=== PATIENT | female | born 1985 | race Caucasian/White ===

== ENCOUNTER 2019-10-26 11:31 | Outpatient (REF) | payer OTHER, SELFPAY ==
[2019-10-26 12:05] LABS: Chol HDL Ratio 3.15 mg/dL (0.0-4.40); Cholesterol 167 mg/dL (0-200); Glucose 97 mg/dL (65-115); HDL Cholesterol 53 mg/dL (60-100); LDL Cholesterol Calculated 99 mg/dL (50-129); LDL HDL Ratio 1.87 RATIO (0.00-3.22); Triglycerides 76 mg/dL (0-150)
[2019-10-26 12:40] LABS: Estmated Average Glucose 117; Hemoglobin A1C 5.7 % (4.0-6.0)
== END 2019-10-26 11:32 | disposition home or self-care (01) ==
LOC: LAB 11:31
PROVIDERS: Family Provider Family Medicine; Visit Provider Family Medicine
DX: Z01.89 Encounter for other specified special examinations (principal)
CPT/HCPCS: 80061; 82947; 83036

== ENCOUNTER 2022-01-28 09:50 | Outpatient (CLI) | payer OTHER, MEDICAID, SELFPAY ==
[2022-01-28 10:11] LABS: Basophils # 0.1 10^3/uL (0.0-0.1); Basophils % 0.5 %; Eosinophils # 0.1 10^3/uL (0.0-0.8); Eosinophils % 0.5 %; Hematocrit 41.7 % (37.0-47.0); Hemoglobin 13.7 g/dL (11.5-15.3); Lymphocytes # 2.7 10^3/uL (0.8-4.8); Mean Corpuscular HGB Conc 32.9 g/dL (30.0-36.0); Mean Corpuscular Hemoglobin 30.1 pg (28.0-34.0); Mean Corpuscular Volume 91.6 fl (81-99); Mean Platelet Volume 8.7 fL (7.4-10.4); Monocytes # 0.6 10^3/uL (0.2-0.9); Monocytes % 6.2 %; Neutrophils # 6.42 10^3/uL (1.8-7.7); Neutrophils % 65.4 %; Nucleated Red Blood Cells % 0 %; Platelet Count 274 10^3/cmm (130-400); Red Blood Count 4.55 10^6/uL (4.1-5.3); Red Cell Distribution Width 12.1 % (12.1-15.1); White Blood Count 9.8 10^3/uL (4.0-10.0)
== END 2022-01-28 09:51 | disposition home or self-care (01) ==
PROVIDERS: PCP Family Medicine; Visit Provider Nurse Practitioner Women's Health
DX: O20.9 Hemorrhage in early pregnancy, unspecified (principal)
CPT/HCPCS: 36415; 76817; 84702; 85025; 86850; 86900

== ENCOUNTER → 2022-02-27 10:06 | Outpatient (BNVA) | payer OTHER, BC, MEDICAID, SELFPAY | PROVIDERS: PCP Family Medicine; Visit Provider Obstetrics & Gynecology | DX: Z34.90 Encounter for supervision of normal pregnancy, unspecified, unspecified trimester (principal) | CPT/HCPCS: 80307; 84315; 84443; 85025; 86592; 86762; 86803; 86850; 86900; 87086; 87340; 87806 ==

== ENCOUNTER → 2022-03-16 13:56 | Outpatient (BNVA) | payer OTHER, BC, MEDICAID, SELFPAY | PROVIDERS: PCP Family Medicine; Visit Provider Obstetrics & Gynecology | DX: Z34.90 Encounter for supervision of normal pregnancy, unspecified, unspecified trimester (principal) | CPT/HCPCS: 84315; 87491; 87591; 87661 ==

== ENCOUNTER → 2022-05-11 10:00 | Outpatient (BNVA) | payer OTHER, BC, MEDICAID, SELFPAY | PROVIDERS: PCP Family Medicine; Visit Provider Obstetrics & Gynecology | DX: Z34.90 Encounter for supervision of normal pregnancy, unspecified, unspecified trimester (principal) | CPT/HCPCS: 81000 ==

== ENCOUNTER → 2022-05-27 11:15 | Outpatient (BNVA) | payer OTHER, BC, MEDICAID, SELFPAY | PROVIDERS: PCP Family Medicine; Visit Provider Obstetrics & Gynecology | DX: N89.8 Other specified noninflammatory disorders of vagina (principal) | CPT/HCPCS: 87255; 87529 ==

== ENCOUNTER → 2022-07-02 10:30 | Outpatient (BNVA) | payer OTHER, BC, MEDICAID, SELFPAY | PROVIDERS: PCP Family Medicine; Visit Provider Obstetrics & Gynecology | DX: Z34.90 Encounter for supervision of normal pregnancy, unspecified, unspecified trimester (principal) | CPT/HCPCS: 82950; 84315; 85025; 87086 ==

== ENCOUNTER → 2022-07-17 07:40 | Outpatient (BNVA) | payer OTHER, BC, MEDICAID, SELFPAY | PROVIDERS: PCP Family Medicine; Visit Provider Obstetrics & Gynecology | DX: Z34.90 Encounter for supervision of normal pregnancy, unspecified, unspecified trimester (principal) | CPT/HCPCS: 82607; 82728; 82746; 82951; 82952; 83550; 84315; 85025; 87086 ==

== ENCOUNTER → 2022-07-24 13:44 | Outpatient (BNVA) | payer OTHER, BC, MEDICAID, SELFPAY | PROVIDERS: PCP Family Medicine; Visit Provider Obstetrics & Gynecology | DX: Z34.90 Encounter for supervision of normal pregnancy, unspecified, unspecified trimester (principal) | CPT/HCPCS: 84315; 87086 ==

== ENCOUNTER 2022-07-30 10:38 | Outpatient (CLI) | payer OTHER, BC, MEDICAID, SELFPAY ==
[2022-07-30 10:53] VITALS: BP 128/69; PULSE 129
[2022-07-30 11:14] VITALS: BP 123/74; PULSE 120
[2022-07-30 11:24] VITALS: BP 123/74; PULSE 120; RESP 18
== END 2022-07-30 11:20 | disposition home or self-care (01) ==
LOC: OPOB 10:42 → OBGYN 10:43
PROVIDERS: PCP Family Medicine; Visit Provider Obstetrics & Gynecology
DX: O30.099 Twin pregnancy, unable to determine number of placenta and number of amniotic sacs, unspecified trimester (principal); Z3A.00 Weeks of gestation of pregnancy not specified
CPT/HCPCS: 59025; 99211

== ENCOUNTER 2022-07-31 10:10 | Outpatient (CLI) | payer OTHER, BC, MEDICAID, SELFPAY ==
[2022-07-31 10:10] VITALS: BMI 34.4
[2022-07-31] MEDS: betamethasone susp 6 mg/mL 5 mL 12 MG IM (10:29)
== END 2022-07-31 10:30 | disposition home or self-care (01) ==
LOC: OPOB 10:13
PROVIDERS: PCP Family Medicine; Visit Provider Obstetrics & Gynecology
DX: O30.099 Twin pregnancy, unable to determine number of placenta and number of amniotic sacs, unspecified trimester (principal); Z3A.00 Weeks of gestation of pregnancy not specified
CPT/HCPCS: 84315; 96372; 99211; J0702

== ENCOUNTER 2022-08-01 11:13 | Outpatient (CLI) | payer OTHER, BC, MEDICAID, SELFPAY ==
[2022-08-01 11:27] VITALS: BMI 34.4
[2022-08-01 11:38] VITALS: BP 122/74; PULSE 120; TEMP 35.9
[2022-08-01] MEDS: betamethasone susp 6 mg/mL 5 mL 12 MG IM (11:39)
== END 2022-08-01 11:59 | disposition home or self-care (01) ==
LOC: OPOB 11:22 → OBGYN 11:26
PROVIDERS: PCP Family Medicine; Visit Provider Obstetrics & Gynecology
DX: O26.899 Other specified pregnancy related conditions, unspecified trimester (principal); Z3A.00 Weeks of gestation of pregnancy not specified
CPT/HCPCS: 96372; J0702

== ENCOUNTER 2022-08-03 08:53 | Outpatient (CLI) | payer OTHER, BC, MEDICAID, SELFPAY ==
[2022-08-03] VITALS (10 sets, daily range): BP systolic 115–130; BP diastolic 58–68; PULSE 71–80; RESP 17; TEMP 36.1; BMI 35.9
--- NOTE | 2022-08-03 | US_ITS ---
WS: [id number] BIOPHYSICAL PROFILE, twin gestation. AMNIOTIC FLUID HISTORY: decreased movement COMPARISON: 07/30/2022 Very limited evaluation of the twin gestation. Targeted evaluation to the biophysical profile only. Twin A: position: Vertex., Maternal RIGHT Cardiac activity: 144 bpm. Placenta: Posterior, no previa or abruption. Placenta grade: 2 Parameters are as follows: Breathin Movement: 2 Tone: 2 Fluid volume: 2 Amniotic fluid, single vertical pocket 2.7 cm. Twin B: position: Vertex. Maternal LEFT. Cardiac activity: 124 bpm Parameters are as follows: Breathin Movement: 2 Tone: 2 Fluid volume: 2 Amniotic fluid: Single vertical pocket 2.4 cm. US/US OB BPP wo NST twins IMPRESSION: 1. Twin A; Biophysical profile score: 8/8. 2. Twin B; Biophysical profile score: 6/8.
--- NOTE | 2022-08-03 10:09 | US_ITS ---
WS: [id number] BIOPHYSICAL PROFILE, twin gestation. AMNIOTIC FLUID HISTORY: decreased movement COMPARISON: 07/30/2022 Very limited evaluation of the twin gestation. Targeted evaluation to the biophysical profile only. Twin A: position: Vertex., Maternal RIGHT Cardiac activity: 144 bpm. Placenta: Posterior, no previa or abruption. Placenta grade: 2 Parameters are as follows: Breathin Movement: 2 Tone: 2 Fluid volume: 2 Amniotic fluid, single vertical pocket 2.7 cm. Twin B: position: Vertex. Maternal LEFT. Cardiac activity: 124 bpm Parameters are as follows: Breathin Movement: 2 Tone: 2 Fluid volume: 2 Amniotic fluid: Single vertical pocket 2.4 cm.
== END 2022-08-03 11:25 | disposition home or self-care (01) ==
LOC: OPOB 08:59 → OBGYN 09:00
PROVIDERS: PCP Family Medicine; Visit Provider Obstetrics & Gynecology
DX: O36.8190 Decreased fetal movements, unspecified trimester, not applicable or unspecified (principal); Z3A.00 Weeks of gestation of pregnancy not specified
CPT/HCPCS: 59025; 76819; 99211

== ENCOUNTER → 2022-08-05 10:19 | Outpatient (BNVA) | payer OTHER, BC, MEDICAID, SELFPAY | PROVIDERS: PCP Family Medicine; Visit Provider Family Medicine | DX: O99.019 Anemia complicating pregnancy, unspecified trimester (principal) | CPT/HCPCS: 82728; 83540; 85025 ==

== ENCOUNTER 2022-08-07 12:27 | Outpatient (CLI) | payer OTHER, BC, MEDICAID, SELFPAY ==
[2022-08-07 12:25] VITALS: BMI 35.5
[2022-08-07 12:33] VITALS: BP 123/67; PULSE 89
[2022-08-07 12:53] VITALS: BP 120/71; PULSE 106
[2022-08-07 13:16] VITALS: BP 120/71; PULSE 106
== END 2022-08-07 13:10 | disposition home or self-care (01) ==
LOC: OPOB 12:27 → OBGYN 12:30
PROVIDERS: Absent Provider Obstetrics & Gynecology; PCP Family Medicine; Visit Provider Obstetrics & Gynecology
DX: O30.099 Twin pregnancy, unable to determine number of placenta and number of amniotic sacs, unspecified trimester (principal); Z3A.00 Weeks of gestation of pregnancy not specified
CPT/HCPCS: 59025; 99211

== ENCOUNTER 2022-08-10 11:17 | Outpatient (CLI) | payer OTHER, BC, MEDICAID, SELFPAY ==
[2022-08-10 11:34] VITALS: BP 122/90; PULSE 100
[2022-08-10 11:37] VITALS: RESP 16
[2022-08-10 11:48] VITALS: BP 117/59; PULSE 102
[2022-08-10 11:52] LABS: Actim Prom Negative
== END 2022-08-10 12:02 | disposition home or self-care (01) ==
LOC: OPOB 11:23 → OBGYN 11:24
PROVIDERS: PCP Family Medicine; Visit Provider Obstetrics & Gynecology
DX: O26.899 Other specified pregnancy related conditions, unspecified trimester (principal); Z3A.00 Weeks of gestation of pregnancy not specified
CPT/HCPCS: 59025; 84112; 84315; 87086; 99211

== ENCOUNTER 2022-08-24 11:07 | Outpatient (CLI) | payer OTHER, BC, MEDICAID, SELFPAY ==
[2022-08-24 11:10] VITALS: BMI 35.1
[2022-08-24 11:26] VITALS: BP 120/73; PULSE 100
[2022-08-24 11:34] VITALS: RESP 18; TEMP 36.3
[2022-08-24 11:46] VITALS: BP 125/76; PULSE 87
[2022-08-24 12:07] VITALS: BP 129/75; PULSE 82
[2022-08-24 12:25] VITALS: BP 129/75; PULSE 82
== END 2022-08-24 12:27 | disposition home or self-care (01) ==
LOC: OPOB 11:17 → OBGYN 11:19
PROVIDERS: PCP Family Medicine; Visit Provider Obstetrics & Gynecology
DX: O30.099 Twin pregnancy, unable to determine number of placenta and number of amniotic sacs, unspecified trimester (principal); Z3A.00 Weeks of gestation of pregnancy not specified
CPT/HCPCS: 59025; 84315; 87086; 99211

== ENCOUNTER 2022-08-25 12:42 | Oncology outpatient (recurring) (ONCR) | payer OTHER, BC, MEDICAID, SELFPAY ==
[2022-08-18 14:45] VITALS: BP 136/84; PULSE 80; RESP 16; TEMP 36.9; O2SAT 97
[2022-08-25 13:39] VITALS: BP 129/82; PULSE 92; RESP 16; TEMP 36.2; O2SAT 99
[2022-08-25] MEDS: sodium chloride 0.9% 250 ML 75 ML IV (13:56)
[2022-08-25] MEDS: ferric carboxy (IVPB) 750 MG in sodium chloride 0.9% (100 ml) 100 ML 345 MG IV (13:56)
== END 2022-09-04 23:59 | disposition home or self-care (01) ==
LOC: ONCMED 12:43
PROVIDERS: PCP Family Medicine; Visit Provider Family Medicine
DX: O99.013 Anemia complicating pregnancy, third trimester (principal); D50.9 Iron deficiency anemia, unspecified; Z79.899 Other long term (current) drug therapy; Z78.9 Other specified health status
CPT/HCPCS: 96365; J1439; J7050

== ENCOUNTER 2022-08-28 03:44 | Inpatient (IN) | payer OTHER, BC, MEDICAID, SELFPAY ==
[2022-08-28] VITALS (69 sets, daily range): BP systolic 84–135; BP diastolic 45–79; PULSE 75–127; RESP 15–18; TEMP 35.8–36.6; O2SAT 96–97
--- NOTE | 2022-08-28 02:27 | USR_ITS ---
PROCEDURE INFORMATION: Exam: US , Limited Exam date and time: 08/28/2022 3:07 AM Age: 37 years old Clinical indication: Lmp or gestational age (in weeks): Premature rupture of membranes; Antepartum complications; ; Additional info: Presentation; Cervical length; [place] LABS AND CLINICAL REPORTS: Last menstrual period start date: 12/16/2021 Gestational age (Established): 36 w 3 d Estimated due date (Established): 09/22/2022 TECHNIQUE: Imaging protocol: Real-time ultrasound of the maternal uterus with image documentation. Exam focused on the clinical indication. COMPARISON: US OB BPP wo NST CC 08/24/2022 8:50 AM FINDINGS: Multifetal identity: Fetus 1 - A. Fetus 2 - B Gestation: Intrauterine gestation. The amniotic and chorionic membranes are not clearly delineated on the images. heart rate: Fetus 1 - 144 bpm. Fetus 2 - 150 bpm presentation: Fetus 1 - Cephalic. Fetus 2 - Cephalic Placenta: Fetus 1 - Anterior grade 3 placenta without previa. Fetus 2 - Anterior grade 3 placenta without previa. Amniotic fluid index: Fetus 1 - ROME is 12.3 cm. Fetus 2 - ROME is 12.5 cm. MATERNAL: Cervix: Cervical length measures 5 cm. US/US OB limited twins [id number] IMPRESSION: Limited twin ultrasound, as noted above.
[2022-08-28] MEDS: NIFEdipine 10 mg Capsule 30 MG PO (02:44)
[2022-08-28] MEDS: betamethasone susp 6 mg/mL 5 mL 12 MG IM (02:44)
[2022-08-28 02:46] LABS: Nitrazine Paper, PH Positive
[2022-08-28] MEDS: dextrose 5%-lactated ringers 1,000 ML 125 ML IV (04:02)
[2022-08-28] MEDS: ondansetron 2 mg/ML SDV 2 mL 4 MG IVP ×2 (04:02→09:53)
[2022-08-28] MEDS: oxytocin 30 UNIT/500 ML BAG IV (04:06)
[2022-08-28 04:29] LABS: Basophils % 0.3 %; Eosinophils # 0.1 10^3/uL (0.0-0.8); Hematocrit 37.8 % (37.0-47.0); Hemoglobin 11.6 g/dL (11.5-15.3); Lymphocytes # 3.4 10^3/uL (0.8-4.8); Lymphocytes % 33.5 %; Mean Corpuscular HGB Conc 30.7 g/dL (30.0-36.0); Mean Corpuscular Hemoglobin 25.8 pg (28.0-34.0); Mean Corpuscular Volume 84.2 fl (81-99); Mean Platelet Volume 9.9 fL (7.4-10.4); Monocytes # 0.9 10^3/uL (0.2-0.9); Monocytes % 8.6 %; Neutrophils # 5.59 10^3/uL (1.8-7.7); Nucleated Red Blood Cells % 0.3 %; Platelet Count 379 10^3/cmm (130-400); Red Blood Count 4.49 10^6/uL (4.1-5.3); Red Cell Distribution Width 19.8 % (12.1-15.1)
[2022-08-28] MEDS: lactated ringers 1,000 ML 999 ML IV (07:31)
--- NOTE | 2022-08-28 08:51 | ANES.PREANE2 ---
Pre-Anesthetic Assessment Height/Weight: Height 1.55 m Weight 85.275 kg Temp Pulse Resp BP Pulse Ox O2 Del Method 96.4 F L 117 H 18 105/59 96 08/28/22 01:56 08/28/22 08:50 08/28/22 03:26 08/28/22 08:50 08/28/22 08:33 08/28/22 05:16 Epidural Familial anesthetic complications: None Was Beta Trae taken within 24 hours: N/A Was Clonidine taken within 24 hours: N/A Social No alcohol and No tobacco Exam alert, oriented x 3, clear to auscultation bilaterally and regular rate & rhythm Airway Mallampati: Class I Dentition: full CV/HEM Anemia Anesthetic Plan ASA status: 2 Anesthesia: Regional (specify below) Risk of > 500 ml blood loss (7ml/kg in children): Yes, adequate IV access and fluids planned Other Pertinent Information Twins Medications/Allergies Home Medications Medication Instructions Recorded Confirmed Last Taken Type valacyclovir 1 gram tablet 1,000 mg PO DAILY #30 tabs 06/05/22 08/28/22 08/27/22 Rx ondansetron HCl 4 mg tablet See Rx Instructions .Route 07/06/22 08/28/22 08/26/22 Rx .COMPLEX #30 tabs ferrous sulfate 325 mg (65 mg 325 mg PO DAILY 07/24/22 08/28/22 08/26/22 History iron) tablet prenat.vits,silvia,dyq-psxp-lifru 1 tab PO DAILY 07/24/22 08/28/22 08/27/22 History Allergies Allergy/AdvReac Type Severity Reaction Status Date / Time No Known Allergies Allergy Verified 08/28/22 03:09 Current Medications Generic Name Dose Route Start Last Admin Trade Name Freq PRN Reason Stop Dose Admin Betamethasone Acet/Betameth SodPhos 12 mg 08/28/22 02:30 08/28/22 02:44 Betamethasone Susp 6 Mg/Ml 5 Ml IM 08/29/22 02:31 12 mg Q24H BASIL Administration Dextrose/Lactated Ringer's 1,000 mls @ 125 mls/hr 08/28/22 03:30 08/28/22 04:02 Dextrose 5%-Lactated Ringers IV 125 mls/hr .Q8H BASIL Administration Lactated Ringer's 1,000 mls @ 999 mls/hr 08/28/22 03:25 08/28/22 07:31 Lactated Ringers IV 999 mls/hr .Q1H1M PRN Administration Per L&D Rescitation Protocol Oxytocin 30 unit in 500 mls @ 1 mls/hr 08/28/22 03:30 08/28/22 08:10 Pitocin IV 12 milliunit/min .Q24H BASIL 12 mls/hr Titration Protocol 1 MILLIUNIT/MIN Ropivacaine 200 mg in 100 mls @ 13 mls/hr 08/28/22 07:45 08/28/22 08:42 Naropin Premix EPIDURAL 13 mls/hr .Q7H42M BASIL Administration Nifedipine 30 mg 08/28/22 02:45 08/28/22 02:44 Nifedipine 10 Mg Capsule PO 30 mg ONCE BASIL Administration Ondansetron HCl 4 mg 08/28/22 03:25 08/28/22 04:02 Ondansetron 2 Mg/Ml Sdv 2 Ml IVP 4 mg Q4H PRN Administration NAUSEA AND VOMITING PFSH Anesthesia Medical History No pertinent past medical history No hx: heart, lung, kidney, liver, thyroid, bleeding or clotting disorders. PCP: Dr. Reynolds Surgical History History of bilateral breast reduction surgery (~2015) Family History Grandfather CAD (coronary artery disease) Diabetes Paternal Hypertension Paternal Stroke Paternal Cancer Lung and maybe esophageal cancer Grandmother CAD (coronary artery disease) Diabetes Paternal Hypertension Paternal Cancer Paternal--- Breast cancer-- dx'd later age Father Hyperlipidemia Hypertension Denies family history of Colon cancer Ovarian cancer Uterine cancer Thyroid disease Female Reproductive History : 3 Data Anesthesia 08/28/22 03:50 Short CBC 08/28/22 Range/Units 03:50 WBC 10.0 (4.0-10.0) 10^3/uL Hgb 11.6 (11.5-15.3) g/dL Hct 37.8 (37.0-47.0) % MCV 84.2 (81-99) fl Plt Count 379 (130-400) 10^3/cmm Neut % (Auto) 56.0 % Neut # (Auto) 5.59 (1.8-7.7) 10^3/uL Cardiac Studies: No Data to Display
--- NOTE | 2022-08-28 08:52 | ANES.PROC ---
Anesthesia Procedures Procedure/Date: 08/28/22 Epidural: Time Out Performed: Yes Consents Signed: Procedure Consent Consent: requested by attending/covering physician, from patient, risks and benefits reviewed and patient agrees to proceed Lumbar Level: L3-L4 Epidural position: sitting Epidural procedure: sterile prep of area, 1% lidocaine to numb the area, 18 g needle, negative for paresthesia passed, neg for paresthesia, test dose given, 1.5% xylocaine 1:200k epi (5 cc), 0.2% Ropivacaine bolus ml (5 ), placed PCEA, no systemic response, sterile dressing applied, L.U.D. no apparent complications and 0.2% Ropiavacaine @ mls/hr (13) Additional Comments: RUPA at 5 cm, threaded to 11 cm excess bleeding from puncture site
[2022-08-28] MEDS: alum-mag-hydroxide-sime 30 mL UDC PO ×2 (09:09→15:17)
--- NOTE | 2022-08-28 14:45 | P.PCNOB_ITS ---
Delivery Note: Date of delivery: August 28, 2022 Pre-delivery diagnoses: Twin the diamniotic and dichorionic vertex, vertex Post-delivery diagnoses: Same as above Procedure: A spontaneous vaginal delivery of twin Delivering Physician: Iván Winston MD Estimated blood loss (mL): 500 Pre-Delivery Course: Ms. Freed is a 37 year old established patient with LMP of 12/17/2021, YUDELKA 09/22/2021 based on 6 week ultrasound, placing her at 36-2/7 weeks today with twin dichorionic diamniotic. Came to labor and delivery with premature rupture of membranes. Delivery: The patient was noted to be complete and pushing, she was taken to the OR for double set up and she was placed in the dorsal lithotomy position, prepped and draped in the usual sterile fashion for a vaginal delivery. Pt. Noted to have epidural anesthesia. At 1354 the patient delivered baby A viable at 36 weeks male weighing 2620 g with scores of 8 and 8 at one and five minutes, respectively. The vertex was delivered spontaneously over intact perineum. The patient was asked to push and the head delivered spontaneously in the MANUEL position, over an intact perineum. A nuchal cord was checked and 1 noted, and relieved around head as necessary. The anterior shoulder delivered easily and the posterior shoulder followed. The remainder of the was easily delivered and the oropharynx and nasopharynx was bulb suctioned. The was noted to have spontaneous cry and spontaneous movement of all four extremities. The cord was clamped x 2 and cut and noted to have 2 arteries and one vein. The infant was passed to the mother's abdomen where nursing personnel and dealership general manager were in attendance. At 1404 the patient delivered baby B viable 36 weeks male weighing 2670 g with scores of 8 and 8 at one and five minutes, respectively. The vertex was delivered spontaneously over intact perineum. The patient was asked to push and the head delivered spontaneously in the JAMESON position, over an intact perineum. A nuchal cord was checked and none noted. The anterior shoulder delivered easily and the posterior shoulder followed. The remainder of the infant was easily delivered and the oropharynx and nasopharynx was bulb suctioned. The was noted to have spontaneous cry and spontaneous movement of all four extremities. The cord was clamped x 2 and cut and noted to have 2 arteries and one vein. The was passed to the mother's abdomen where nursing personnel and dealership general manager were in attendance. The placenta delivered intact spontaneously and the uterus was explored. 20 units of Pitocin was placed in the IV bag to firm the uterus. Examination of the cervix and vaginal vault did not reveal any lacerations. A vaginal pack was then placed. Examination of the perineum showed first-degree laceration. The laceration was repaired with 3-0 Vicryl in the normal fashion in a running non locking fashion to reapproximate the laceration in layers. The vaginal pack was then removed. The patient tolerated this procedure well, and recovered in L&D with her infant to [facility] room. All sponge and needle counts were correct. History History History 3 Term 1 1 Miscarriages/Ectopic 0 Living Children 1 A&P Assessment and plan (1) Dichorionic diamniotic twin gestation: (2) Twin delivered vaginally: Plan observation. She has signed a consent for bilateral partiel salpingectomy for permanent sterilization. bilateral salpingectomy scheduled for tomorrow Coding Level of Care Code Acute Code for Chg Fwd Diagnoses Dichorionic diamniotic twin gestation O30.049 Twin delivered vaginally O30.009
[2022-08-28] MEDS: miSOPROStol 200 mcg Tablet 800 MCG PR (15:17)
[2022-08-28] MEDS: ibuprofen 800 mg tablet PO ×2 (15:18→21:24)
[2022-08-28] MEDS: methylergonovine 0.2 mg/mL INJ 1 mL IM (15:18)
--- NOTE | 2022-08-28 18:17 | PC.NURSE ---
Patient to OR at 1320. T documented on paper tracing from this time to delivery r/t technical issues.
[2022-08-29] VITALS (48 sets, daily range): BP systolic 102–123; BP diastolic 52–77; PULSE 61–96; RESP 16–18; TEMP 36.1–36.7; O2SAT 88–98
[2022-08-29] MEDS: benzocaine-menthol 78 gm Canister 1 SPRAY TOPICAL (03:18)
[2022-08-29 03:21] LABS: Hematocrit 32.1 % (37.0-47.0); Hemoglobin 9.7 g/dL (11.5-15.3); Mean Corpuscular HGB Conc 30.2 g/dL (30.0-36.0); Mean Corpuscular Hemoglobin 25.8 pg (28.0-34.0); Mean Corpuscular Volume 85.4 fl (81-99); Mean Platelet Volume 9.7 fL (7.4-10.4); Platelet Count 302 10^3/cmm (130-400); Red Blood Count 3.76 10^6/uL (4.1-5.3); Red Cell Distribution Width 20.2 % (12.1-15.1); White Blood Count 18.9 10^3/uL (4.0-10.0)
--- NOTE | 2022-08-29 07:34 | P.ANESUD_ITS ---
Pre-Anesthetic Update Pre-Anesthetic Assessment: Date of Surgery/Procedure: 08/29/22 Preop Shy gnosis: vaginal delivery Any changes to Pre-Anesthetic Assessment?: No Labs Last 48hrs: Short CBC 08/28/22 08/29/22 Range/Units 03:50 03:05 WBC 10.0 18.9 H (4.0-10.0) 10^3/ uL Hgb 11.6 9.7 L (11.5-15.3) g/dL Hct 37.8 32.1 L (37.0-47.0) % MCV 84.2 85.4 (81-99) fl Plt Count 379 302 (130-400) 10^3/c mm Neut % (Auto) 56.0 % Neut # (Auto) 5.59 (1.8-7.7) 10^3/u L Vitals: Temperature 97.0 F L 08/29/22 03:09 Pulse Rate 76 08/29/22 03:09 Pulse Rhythm 08/28/22 05:16 Pulse Strength 3+ Normal 08/28/22 05:16 Respiratory Rate 16 08/28/22 14:49 Respiratory Effort Non-Labored 08/28/22 05:16 Respiratory Depth Normal 08/28/22 05:16 Respiratory Patter n 08/28/22 05:16 Blood Pressure 123/60 08/29/22 03:09 Pulse Oximetry 96 08/28/22 08:33 Oxygen Delivery Me thod 08/28/22 05:16 Exam: Pre-Anes Outpt Exam: alert, oriented x 3, clear to auscultation bilaterally and regular rate & rhythm Cardiac Studies: No Data to Display
[2022-08-29] MEDS: citric acid-sodium citrate 30 mL UDC PO (08:20)
[2022-08-29] MEDS: metoclopramide 5 mg/mL SDV 2 mL 10 MG IVP (08:20)
[2022-08-29] MEDS: lactated ringers 1,000 ML 999 ML IV (08:20)
[2022-08-29] MEDS: famotidine 20 mg/2 mL INJ IVP (08:21)
[2022-08-29] MEDS: ceFAZolin 2,000 MG in sodium chloride 0.9% (plus) 50 ML 100 MG IV (09:25)
--- NOTE | 2022-08-29 10:18 | PM.OP ---
Operative Report Date of procedure: August 29, 2022 Pre-op diagnosis: Preop Diagnosis vaginal delivery. Desire permanent sterilization Post-op diagnosis: Same as above Procedure done: bilateral partial salpingectomy. Specimens removed/disposition: Left and right fallopian tube segment Surgeon: Iván Winston MD Estimated blood loss (mL): 5 IV fluids (mL): 1,500 Findings: Enlarged uterus Procedure: The patient was informed of the risks and benefits of the procedure. Risks included but were not limited to bleeding, infection, and injury to internal organs. The patient was counseled on the risk of sterilization failure. The patient was informed that in the event a occurs the risk of ectopic is increased. The patient was counseled that bilateral tubal ligation is intended to be permanent and nonreversible. She was also counseled that there are nonpermanent forms of control available to her. The patient expressed understanding of the risks involved, all questions were answered, and the patient consented to the procedure. After assuring informed consent. The patient was taken to the operating room and general anesthesia administered. Time-out procedure was performed. A small, transverse, infraumbilical skin incision was made with a scalpel, and the incision was carried down through the underlying fascia until the peritoneum was identified and entered. The left fallopian tube was identified, brought into the incision and grasped with a Ema clamp. The tube was then followed out to the fimbria. An avascular midsection of the fallopian tube was grasped with a Ema clamp and brought into a knuckle. Using the [email or web address] Fine Fusion device the falopian tube was clamped, seal and cut. The specimen was sent to pathology. Excellent hemostasis was noted, and the tube was returned to the abdomen. The same procedure was performed on the opposite fallopian tube. The fascia was then closed with O-Vicryl in a single layer. The skin was closed with 3-O Monocryl in a subcuticular fashion. The patient tolerated the procedure well. Needle and sponge counts were correct times 3.
[2022-08-29] MEDS: acetaminophen 325 mg Tablet 650 MG PO (11:02)
[2022-08-29] MEDS: ibuprofen 800 mg tablet PO (16:10)
[2022-08-30] MEDS: ibuprofen 800 mg tablet PO ×2 (00:10→09:14)
[2022-08-30 04:01] VITALS: BP 110/59; PULSE 73; TEMP 35.9
[2022-08-30 06:36] LABS: Hematocrit 31.2 % (37.0-47.0); Hemoglobin 9.3 g/dL (11.5-15.3); Mean Corpuscular HGB Conc 29.8 g/dL (30.0-36.0); Mean Corpuscular Volume 87.2 fl (81-99); Mean Platelet Volume 9.9 fL (7.4-10.4); Platelet Count 306 10^3/cmm (130-400); Red Blood Count 3.58 10^6/uL (4.1-5.3); Red Cell Distribution Width 20.9 % (12.1-15.1)
[2022-08-30] MEDS: prenatal vitamin Capsule 1 CAP PO (09:14)
[2022-08-30 10:07] VITALS: BP 114/56; PULSE 94; TEMP 36.2
--- NOTE | 2022-08-30 11:42 | PM.OBGYDC ---
Discharge Providers OR NURSE MANAGER Date of Admission: 08/28/22 03:44 Date of Discharge: 08/30/22 Attending Provider at Admission: Iván Winston MD Attending Provider at Discharge: Iván Winston MD Primary Care Provider: Speedy Reynolds MD Reason for Visit Reason for Visit: PROM Physical Exam Narrative: GA; alert and oriented x 3 HEENT: normal Breasts: engorged Nipples - skin intact Lungs; clear to auscultation Heart: regular rhythm, no murmurs. Abd: Appropriately tender. BS+. Uterine fundus below umbilicus. No Fundal Tenderness. Minimal tenderness, incision clean and dry, no redness, pain or edema. Perineum: normal lochia. Extremities: no edema, no cyanosis, no tenderness. Urinary Catheter Management: Steele Latex: Cath Placed During This Visit: yes, but has since been removed by the nurse Reason for Continuing Indwelling Catheter: Decision to DC Catheter Urinary Catheter Date of Insertion: 08/28/22 Urinary Catheter Time of Insertion: 09:30 Date Urinary Catheter Removed: 08/28/22 Time Urinary Catheter Discontinued: 13:45 History History History 3 Term 1 1 Miscarriages/Ectopic 0 Living Children 1 Discharge Data Studies Completed and Pending Completed Studies During Hospitalization Category Date Time Status US OB limited twins [id number] Stat Ultrasound 08/28/22 02:27 Completed Pending at discharge Category Date Time Status Pathology: Surgical [PTH] Routine Pth 08/29/22 11:49 Ordered Radiology Impressions Obstetrics Ultrasound 08/28/22 02:27 IMPRESSION: Limited twin ultrasound, as noted above. Laboratory Results WBC 19.0 10^3/uL (4.0-10.0) H 08/30/22 06:10 RBC 3.58 10^6/uL (4.1-5.3) L 08/30/22 06:10 Hgb 9.3 g/dL (11.5-15.3) L 08/30/22 06:10 Hct 31.2 % (37.0-47.0) L 08/30/22 06:10 MCV 87.2 fl (81-99) 08/30/22 06:10 MCH 26.0 pg (28.0-34.0) L 08/30/22 06:10 MCHC 29.8 g/dL (30.0-36.0) L 08/30/22 06:10 RDW 20.9 % (12.1-15.1) H 08/30/22 06:10 Plt Count 306 10^3/cmm (130-400) 08/30/22 06:10 MPV 9.9 fL (7.4-10.4) 08/30/22 06:10 Neut % (Auto) 56.0 % 08/28/22 03:50 Lymph % (Auto) 33.5 % 08/28/22 03:50 Smith % (Auto) 8.6 % 08/28/22 03:50 Eos % (Auto) 1.0 % 08/28/22 03:50 Baso % (Auto) 0.3 % 08/28/22 03:50 Neut # (Auto) 5.59 10^3/uL (1.8-7.7) 08/28/22 03:50 Lymph # (Auto) 3.4 10^3/uL (0.8-4.8) 08/28/22 03:50 Smith # (Auto) 0.9 10^3/uL (0.2-0.9) 08/28/22 03:50 Eos # (Auto) 0.1 10^3/uL (0.0-0.8) 08/28/22 03:50 Baso # (Auto) 0.0 10^3/uL (0.0-0.1) 08/28/22 03:50 Nucleated RBC % (auto) 0.3 % 08/28/22 03:50 Nucleated RBCs # 0.0 /100WBC 08/28/22 03:50 Vitals Last Vital Signs Temp 97.2 F L 08/30/22 10:07 Pulse 94 08/30/22 10:07 Resp 16 08/29/22 12:02 BP 114/56 08/30/22 10:07 Pulse Ox 96 08/29/22 13:27 O2 Del Method 08/29/22 13:00 O2 Flow Rate 2 08/29/22 12:02 Discharge Plan Discharge Patient Disposition: Home Condition: Good Prescriptions: New hydrocodone-acetaminophen 5-325 mg tablet 1 tab PO Q4H PRN (Reason: pain) Qty: 10 0RF acetaminophen 325 mg capsule 325 mg PO Q4H PRN (Reason: fever or pain) Qty: 60 0RF docusate sodium [Colace] 100 mg capsule 100 mg PO BID Qty: 60 0RF ferrous sulfate [Iron (ferrous sulfate)] 325 mg (65 mg iron) tablet 325 mg PO BID Qty: 60 0RF ibuprofen 800 mg tablet 800 mg PO TID PRN (Reason: pain) Qty: 60 0RF Continued valacyclovir 1 gram tablet 1,000 mg PO DAILY Qty: 30 12RF prenat.vits,silvia,sum-hank-gqhaj Tablet 1 tab PO DAILY ferrous sulfate 325 mg (65 mg iron) tablet 325 mg PO DAILY ondansetron HCl 4 mg tablet See Rx Instructions .ROUTE .COMPLEX Qty: 30 2RF Dose Instruction: TAKE 1 TABLET BY MOUTH EVERY 6 HOURS Rx Instructions: TAKE 1 TABLET BY MOUTH EVERY 6 HOURS Discharge Orders: Discharge Order (Routine); Ordered 08/30/22 Ordered By: Iván Winston Referrals: Iván Winston MD [Physician] - 2 weeks Discharge Diet: Advance as tolerated Discharge Activity: Limit activity as instructed Patient Instructions: Depression (DC), Bleeding (DC), Preeclampsia and Eclampsia After Delivery (GEN), Hemorrhage (DC), OB Discharge Report, OB Food/Drug Interaction Guide, OB Care at Home, Opioid Safety, OB Home Care, OB Proud Parent Packet, OB Vaginal Deliveries - [facility] Activity Restrictions/Additional Instructions: 1. Please call [facility] on next working day to make your post-operative appointment in 2 weeks. 2. Please stay home until you come back to the clinic on first post-operative check up. 3. Please follow instructions on your medications CAREFULLY. 4. If you have abdominal incision, do not cover it unless dressing is necessary because of drainage. OK to shower, but avoid bath. Leave steri-strips until they fall off. If they are still on one week after surgery, you may remove them. 5. If you had vaginal surgery or vaginal repair, Dr. Winston may instruct you to take SITZ bath. 6. Yellow, blood tinged odorous vaginal discharge is usually normal after hysterectomy or vaginal surgeries. 7. No sexual intercourse, tampons, or douches until you are completely released from the post-operative care. 8. Avoid constipation by eating right and maybe using some Metamucil or Milk of Magnesia. 9. All prescription refills are given during the working hours. Please do no wait till it runs out. Call the clinic at [phone] before your medication runs out. The clinic will get in touch with your doctor to prescribe medications if necessary. 10. Please remain within 40 mile radius from our hospital because emergencies do happen now and then during the post-operative period. 11. If you have stairs at home, take one step at a time slowly and minimize the number of trips. It helps to stay in one floor for the next few days. No lifting except what you can lift by one hand until you are released from the post-operative care. 12. Driving is discouraged until you are well healed. It may be 3-4 weeks before you feel strong enough to drive. You should be able to turn and look through the rear window without pain and you should be able to push the brake pedal very hard without pain before you drive. No fast rules, but SAFETY should be your primary concern. DO NOT drive if you are on sedating medications such as narcotics. 13. Call the clinic (during working hours) to make urgent appointment or go to the Emergency room, if any of the following occurs: i. Vaginal bleeding becomes heavy, more than a period. ii. Incision becomes red and sore, or drains pus. iii. Your temperature is over 100.4 or you have chill. iv. IV site becomes red and swollen (a little ``knot?? is usually OK) v. Persistent nausea and vomiting vi. Persistent constipation or diarrhea vii. Rash or allergic reaction to medications. Discharge Attestations OR NURSE MANAGER Time Spent in Discharge Care*: greater than 30 min Coding Level of Care Code Acute Code for Chg Tom
[2022-08-30 14:55] VITALS: BP 114/56; PULSE 94; RESP 16; TEMP 36.7
== END 2022-08-30 14:55 | disposition home or self-care (01) | DRG 797 ==
LOC: OBGYN 10:02 → OPOB 08-29 05:55 → OBGYN 08-29 05:55
PROVIDERS: Admitting Provider Obstetrics & Gynecology; PCP Family Medicine; Visit Provider Obstetrics & Gynecology
PROC: 0UB70ZZ Excision of Bilateral Fallopian Tubes, Open Approach (ICD-10-PCS; CPT 58605; principal; 2022-08-29 09:30)
DX: O42.013 Preterm premature rupture of membranes, onset of labor within 24 hours of rupture, third trimester (principal); O98.52 Other viral diseases complicating childbirth; Z37.2 Twins, both liveborn; B34.9 Viral infection, unspecified; O30.043 Twin pregnancy, dichorionic/diamniotic, third trimester; O69.81X1 Labor and delivery complicated by cord around neck, without compression, fetus 1; O70.0 First degree perineal laceration during delivery; Z3A.36 36 weeks gestation of pregnancy; Z30.2 Encounter for sterilization; Z87.59 Personal history of other complications of pregnancy, childbirth and the puerperium
CPT/HCPCS: 36415; 51702; 59025; 59409; 76815; 83986; 85025; 85027; 88302; 96372; 96374; 99211; J0330; J0690; J0702; J1100; J1885; J2210; J2250; J2405; J2590; J2704; J2765; J2795; J3010; J3490; J7120; J7121

== ENCOUNTER → 2023-03-12 10:33 | Outpatient (BNVA) | payer OTHER, BC, MEDICAID, SELFPAY | PROVIDERS: PCP Family Medicine; Visit Provider Nurse Practitioner Women's Health | DX: R35.0 Frequency of micturition (principal) | CPT/HCPCS: 81000; 87086 ==

== ENCOUNTER → 2023-06-30 14:11 | Outpatient (BNVA) | payer OTHER, BC, MEDICAID, SELFPAY | PROVIDERS: PCP Family Medicine; Visit Provider Nurse Practitioner Women's Health | DX: N92.0 Excessive and frequent menstruation with regular cycle (principal) | CPT/HCPCS: 76830 ==

== ENCOUNTER 2023-08-20 11:27 | Outpatient (CLI) | payer OTHER, BC, MEDICAID, SELFPAY ==
--- NOTE | 2023-08-20 11:34 | MM_ITS ---
WS: [id number] BILATERAL 3D TOMOSYNTHESIS DIGITAL SCREENING MAMMOGRAPHY WITH CAD CLINICAL INFORMATION: Z12.31 - Encounter for screening mammogram for malignant ... HISTORY: Screening mammogram. No current complaints. History of breast reduction COMPARISON: None. TECHNIQUE: Bilateral CC and MLO views. FINDINGS: Scattered fibroglandular densities bilaterally. No suspicious focal mass, asymmetry, calcifications, or architectural distortion. No evidence of malignancy. Incidental punctate calcifications. Clustered dystrophic calcifications RIGHT breast likely due to prior breast reduction. IMPRESSION: MM/[place] [id number] BI-RADS: 2-Benign FOLLOW UP: 1 Year Follow-up Recommend return to annual screening mammography.
== END 2023-08-20 11:28 | disposition home or self-care (01) ==
LOC: RAD 11:28
PROVIDERS: PCP Family Medicine; Visit Provider Nurse Practitioner Women's Health
DX: Z12.31 Encounter for screening mammogram for malignant neoplasm of breast (principal)
CPT/HCPCS: 77063; 77067

== ENCOUNTER → 2024-08-18 16:17 | Outpatient (BNVA) | payer OTHER, BC, MEDICAID, SELFPAY | PROVIDERS: PCP Family Medicine; Visit Provider Nurse Practitioner Women's Health | DX: Z01.419 Encounter for gynecological examination (general) (routine) without abnormal findings (principal); N95.1 Menopausal and female climacteric states | CPT/HCPCS: 87624 ==

== ENCOUNTER → 2024-12-01 08:34 | Outpatient (BNVA) | payer OTHER, BC, MEDICAID, SELFPAY | PROVIDERS: PCP Family Medicine; Visit Provider Family Medicine | DX: Z13.6 Encounter for screening for cardiovascular disorders (principal); L70.0 Acne vulgaris | CPT/HCPCS: 80053; 80061; 84443; 85025 ==